=== PATIENT | female | born 1985 | race Caucasian/White ===

== ENCOUNTER 2018-01-30 08:18 | Inpatient (IN) | payer OTHER ==
[~2018-01-30] VITALS: Ht 165.1 cm; Wt 98.9 kg
[~2018-01-30 08:18] MED LIST: AUGMENTIN 875-1 EACH PO; IBUPROFEN800 M1 PO; TYLENOL EXTRA500 M2 PO; ZOFRAN ODT4 M1 SL
[2018-01-30 08:59] LABS: ABSOLUTE BASOPHIL COUNT 0 /CUMM (0.0-0.2); ABSOLUTE EOSINOPHIL COUNT 0 /CUMM (0.0-0.7); ABSOLUTE GRANULOCYTE CT 4.8 /CUMM (1.4-6.5); ABSOLUTE LYMPH COUNT 1.2 /CUMM (1.2-3.4); ABSOLUTE MONOCYTE COUNT 0.4 /CUMM (0.10-0.60); BASOPHIL % 0.3 % (0.0-2.0); EOSINOPHIL % 0.7 % (0-5); GRANULOCYTE % 73.6 % (42.2-75.2); HEMATOCRIT 34.4 % (37-47); MEAN CORPUSCULAR HGB 29.5 PG (27.0-31.0); MEAN CORPUSCULAR VOLUME 86.9 FL (81.0-99.0); MEAN PLATELET VOLUME 8.3 FL (7.4-10.4); PLATELET COUNT 168 /CUMM (130-400); RBC DISTRIBUTION WIDTH 14.1 % (11.5-14.5); RED BLOOD CELL CT 3.96 /CUMM (4.20-5.40); WHITE BLOOD CELL COUNT 6.5 /CUMM (4.8-10.8)
--- NOTE | 2018-01-30 20:15 | History & Physical Pre-Op ---
General Information and HPI History of Present Illness: 32YO EDC 02/05/18 at 39w1d presents for IOL secondary to macrosomia (EFW 8.5-9). care is complete Allergies/Medications Allergies: Coded Allergies: No Known Allergies (05/22/17) Home Med list Acetaminophen (Tylenol Extra Strength) 500 MG TABLET 5 TAB PO DAILY TOOTH ACHE (Reported) Amoxicillin/Potassium Clav (Augmentin 875-125 Tablet) 875 MG-125 MG TABLET 1 TAB PO BID dental Ibuprofen 800 MG TABLET 1 TAB PO TID PRN pain Ondansetron (Zofran Odt) 4 MG TAB.RAPDIS 1 TAB SL TID PRN nausea Past History Medical History Neurological: NONE EENT: NONE Cardiovascular: NONE Respiratory: NONE Gastrointestinal: NONE Hepatic: NONE Renal: NONE Musculoskeletal: NONE Psychiatric: NONE Endocrine: NONE Blood Disorders: NONE 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 EENTM: Reports: no symptoms. Cardiovascular: Reports: no symptoms. Respiratory: Reports: no symptoms. GI: Reports: no symptoms. Genitourinary: Reports: no symptoms. Musculoskeletal: Reports: no symptoms. Skin: Reports: no symptoms. Neurological/Psychological: Reports: no symptoms. Hematologic/Endocrine: Reports: no symptoms. Immunologic/Allergic: Reports: no symptoms. All Other Systems: Reviewed and Negative Exam & Diagnostic Data Last 24 Hrs of Vital Signs/I&O Intake & Output 05/ 1600 05/25 0800 05/25 0000 Intake Total Output Total Balance Patient 218 lb Weight Physical Exam: HEENT: NCAT Chest: CTA CV: nl S1S2 Abd: gravid, cephalic, EFW 8.5-9 Cx: LTCP Ext: no c/c/e Assessment/Plan Assessment/Plan: 39 wk macrosomia induction of labor As Ranked By This Provider Problem List: 1.
--- NOTE | 2018-01-30 20:18 | Labor & Delivery Summary ---
Delivery Summary Vaginal Delivery: Vaginal: spontaneous Episiotomy/Lacerations: Episiotomy/Lacerations: rml Placenta: Placenta: spontanteous, normal, 3 vessel Anesthesia: epi Baby's Weight: 9-15 Apgars - 1 Min: 8 Apgars - 5 Min: 9 Additional Comments: shoulder dystocia relieved with gentle downward pressure, Mcrobert's and suprapubic pressure. Anesthesia at delivery for thin mec.
[2018-01-31 08:39] LABS: ABSOLUTE BASOPHIL COUNT 0 /CUMM (0.0-0.2); ABSOLUTE EOSINOPHIL COUNT 0 /CUMM (0.0-0.7); ABSOLUTE LYMPH COUNT 1.5 /CUMM (1.2-3.4); HEMATOCRIT 35.6 % (37-47); MEAN CORPUSCULAR HGB 29.8 PG (27.0-31.0); RED BLOOD CELL CT 4.03 /CUMM (4.20-5.40)
[2018-01-31 09:18] LABS: ABSOLUTE GRANULOCYTE CT 11.6 /CUMM (1.4-6.5); ABSOLUTE MONOCYTE COUNT 0.9 /CUMM (0.10-0.60); BASOPHIL % 0.2 % (0.0-2.0); EOSINOPHIL % 0.3 % (0-5); GRANULOCYTE % 82.4 % (42.2-75.2); MEAN CORPUSCULAR HGB CONC 33.6 G/DL (33.0-37.0); MEAN CORPUSCULAR VOLUME 88.5 FL (81.0-99.0); MEAN PLATELET VOLUME 8.9 FL (7.4-10.4); PLATELET COUNT 156 /CUMM (130-400); RBC DISTRIBUTION WIDTH 14.2 % (11.5-14.5)
--- NOTE | 2018-01-31 09:36 | PN- Post Delivery/GYN ---
Subjective Subjective: NO C/O Review of Systems: NEG Objective Last 24 Hrs of Vital Signs/I&O VSS Physical Exam: FF EXT NT Assessment/Plan Assessment/Plan PPD1 S/P STABLE CPM Problem List: 1.
[2018-02-01] MEDS ORDERED: IBUPROFEN800 M1 PO (10:57)
== END 2018-02-01 11:16 | DRG 560 ==
LOC: GNO 08:18
PROVIDERS: Obstetrics & Gynecology
PROC: 3E033VJ Introduction of Other Hormone into Peripheral Vein, Percutaneous Approach (ICD-10-PCS; principal; 2018-01-30)
PROC: 10E0XZZ Delivery of Products of Conception, External Approach (ICD-10-PCS; 2018-01-30)
DX: O66.2 Obstructed labor due to unusually large fetus (principal); Z3A.39 39 weeks gestation of pregnancy; Z37.0 Single live birth
CPT/HCPCS: GNOP; GNOS; 36415; 81003; 87086; J3490; J7120

== ENCOUNTER 2018-05-26 06:56 | Emergency (ER) | payer OTHER ==
[~2018-05-26] VITALS: Ht 167.6 cm; Wt 81.6 kg
[2018-05-26 08:50] LABS: ABSOLUTE BASOPHIL COUNT 0 /CUMM (0.0-0.2); ABSOLUTE EOSINOPHIL COUNT 0.1 /CUMM (0.0-0.7); ABSOLUTE GRANULOCYTE CT 4.3 /CUMM (1.4-6.5); ABSOLUTE LYMPH COUNT 1.5 /CUMM (1.2-3.4); ABSOLUTE MONOCYTE COUNT 0.6 /CUMM (0.10-0.60); BASOPHIL % 0.2 % (0.0-2.0); EOSINOPHIL % 1.8 % (0-5); GRANULOCYTE % 65.9 % (42.2-75.2); HEMATOCRIT 42.5 % (37-47); MEAN CORPUSCULAR HGB 30.8 PG (27.0-31.0); MEAN CORPUSCULAR VOLUME 87.9 FL (81.0-99.0); MEAN PLATELET VOLUME 7.4 FL (7.4-10.4); PLATELET COUNT 202 /CUMM (130-400); RBC DISTRIBUTION WIDTH 12.5 % (11.5-14.5); RED BLOOD CELL CT 4.84 /CUMM (4.20-5.40); WHITE BLOOD CELL COUNT 6.5 /CUMM (4.8-10.8)
[2018-05-26 08:57] LABS: PT 11.5 SEC (9.4-12.5); PTT 29 SEC (25-37)
--- NOTE | 2018-05-26 10:12 | CT SCAN REPORT ---
EXAMINATION: CT ABDOMEN AND PELVIS WITH CONTRAST CLINICAL INFORMATION: Bloody diarrhea, left lower quadrant pain for 3 days. Presumptive diagnosis of colitis, diverticulitis, small bowel obstruction, inflammatory bowel disease. COMPARISON: Pelvic ultrasound dated 06/23/2007. TECHNIQUE: Multidetector CT volumetric acquisition of the abdomen and pelvis was performed after the administration of 95 mL of intravenous Optiray 320. The data set was reformatted in the sagittal and coronal planes and reviewed on an independent workstation. DLP: 590.60 mGy-cm. FINDINGS: LOWER CHEST: Included lung bases unremarkable. LIVER, GALLBLADDER, BILIARY TREE: Liver normal size and diffusely slightly lower in attenuation compared to the spleen, suggesting subtle hepatic steatosis. There is a subcapsular 1.2 x 0.9 cm hypoenhancing masslike region seen in segment 4A/B, adjacent to the falciform ligament (series 2, image 19),, most likely representing the area of altered vascular perfusion rather than a true mass. Remainder of the liver is unremarkable with no additional focal cystic or solid mass or intra-or extrahepatic ductal dilatation. Hepatic and portal veins patent. Gallbladder partially distended and within normal limits. PANCREAS: Normal. No ductal dilatation, mass, or surrounding stranding. SPLEEN: Normal size and appearance. Splenic vein patent. ADRENAL GLANDS AND KIDNEYS: Adrenal glands normal. Kidneys bilaterally symmetric in size and function. No focal mass, hydronephrosis, nephrolithiasis or perinephric stranding. URETERS AND BLADDER: Ureters decompressed and within normal limits. Bladder completely decompressed and not adequately assessed. PELVIC ORGANS: Uterus anteverted and anteflexed and unremarkable. Ovaries bilaterally demonstrates several small follicular cysts. No suspicious adnexal mass. GASTROINTESTINAL TRACT: There is diffuse circumferential bowel wall thickening and edema seen involving the ascending colon, transverse colon and to a lesser extent the descending and rectosigmoid colon with mild mucosal hyperenhancement seen. There is mild surrounding hyperemia and minimal fat stranding seen. No evidence of bowel perforation or pneumatosis is noted. The terminal ileum is unremarkable. Small bowel loops decompressed and unremarkable. Appendix in right lower quadrant normal. LYMPHOVASCULAR STRUCTURES: Abdominal aorta normal in caliber. No periaortic collections. No abdominal or pelvic adenopathy or free fluid collection. BONES: Small scattered sclerotic bone islands are seen. No suspicious bone findings. Mild posterior disc osteophyte complex seen at the L5-S1 level. IMPRESSION: 1. Diffuse abnormal appearance of the colon is seen, most prominently involving the ascending and transverse colon with surrounding mesenteric hyperemia and fat stranding. Findings are consistent with a diffuse colitis, possibly secondary to inflammatory bowel disease. In the correct clinical setting, other entities, including antibiotic associated colitis, pseudomembranous colitis, or other infectious colitis can be considered. Close clinical correlation is requested. 2. No evidence of bowel perforation or obstruction. 3. Probable hepatic steatosis with area of altered vascular perfusion in segment 4 adjacent to the falciform ligament. 4. Mild posterior disc osteophyte complex at L5-S1.
[2018-05-26] MEDS ORDERED: DICYCLOMINE HCL10 M1 PO (11:06)
--- NOTE | 2018-05-26 11:07 | ED GI/GU/ABDOMINAL COMPLAINT ---
History of Present Illness General Chief Complaint: Abdominal Pain/Flank Pain Stated Complaint: PT C/O ABD PAIN,DIARRHEA W/ BLEEDING Source: patient Exam Limitations: no limitations Vital Signs & Intake/Output Vital Signs & Intake/Output ED Intake and Output 05/27 0000 05/26 1200 Intake Total 0 Output Total Balance 0 Intake, Oral 0 Patient 180 lb Weight Weight Reported by Patient Measurement Method Allergies Coded Allergies: No Known Allergies (05/22/17) Triage Note: 33 YO FEMALE TO TRIAGE FOR EVAL OF GENERLIZED ABD PAIN WITH +LOOSE STOOL. STATES BRB IN STOOL. +NAUSEA. STATES PAIN STARTED ON FRIDAY. Triage Nurses Notes Reviewed? yes LMP (ages 10-50): unknown ? N Is pt currently ? No Onset: Abrupt Duration: day(s): (2-3), constant, continues in ED, getting worse Timing: single episode today Quality/Severity: cramping Severity Numbers: 8 Location: generalized abdomen, left lower quadrant (WORSE) Radiation: no radiation Activities at Onset: none Prior Abdominal Problems: none Past Sexual History: Unobtainable at this time No Modifying Factors: none Associated Symptoms: abdominal pain, diarrhea HPI: 33-year-old female with no medical history presents for evaluation of abdominal pain nausea and diarrhea. Patient reports symptoms started 2 or 3 days ago to be persistent. She reports that yesterday she noticed that there was bright red blood in the diarrhea. She reports diffuse abdominal cramping that is worse in the left lower area. She never had this before. She denies fevers recent antibiotics recent travel or sick contacts. She is not on blood thinners. No dizziness or lightheadedness no chest pain shortness of breath or back pain. No hematemesis or melena. (Christiano Somers) Reconcile Medications Dicyclomine HCl 10 MG CAPSULE 1-2 CAP PO Q6P PRN ABDOMINAL PAIN DIARRHEA (Jeremiah Vela MD) Past History Travel History Traveled to [place] past 21 day No Medical History Any Pertinent Medical History? 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 No (Christiano Somers) Review of Systems Review of Systems Constitutional: Reports: no symptoms. EENTM: Reports: no symptoms. Respiratory: Reports: no symptoms. Cardiovascular: Reports: no symptoms. GI: Reports: see HPI, abdominal pain, diarrhea, nausea, bloody stool, changes in stool. Genitourinary: Reports: no symptoms. Musculoskeletal: Reports: no symptoms. Skin: Reports: no symptoms. Neurological/Psychological: Reports: no symptoms. Hematologic/Endocrine: Reports: no symptoms. Immunologic/Allergic: Reports: no symptoms. All Other Systems: Reviewed and Negative (Christiano Somers) Physical Exam Physical Exam General Appearance: well developed/nourished, no apparent distress, alert, awake Head: atraumatic, normal appearance Eyes: Bilateral: normal appearance, PERRL, EOMI. Ears, Nose, Throat, Mouth: moist mucous membrane Neck: normal inspection, supple, full range of motion Respiratory: normal breath sounds, chest non-tender, no respiratory distress, lungs clear Cardiovascular: regular rate/rhythm, normal peripheral pulses Peripheral Pulses: 2+ radial (R), 2+ radial (L) Gastrointestinal: normal bowel sounds, soft, no organomegaly, tenderness ( DIFFUSE WORSE LLQ) Back: normal inspection, normal range of motion, no vertebral tenderness Extremities: normal range of motion Neurologic/Psych: no motor/sensory deficits, awake, alert, oriented x 3, normal gait, normal mood/affect Skin: intact, normal color, warm/dry Core Measures ACS in differential dx? No Sepsis Present: No Sepsis Focused Exam Completed? No (Christiano Somers) Progress Differential Diagnosis: bowel obstruction, colon cancer, diverticulitis, gastritis, hemorrhoids, ischemic bowel, inflamm bowel dis, peptic ulcer, PUD/ GERD, BACTERIAL GASTROENTERITIS, cROHN'S DISEASE, ULCERATIVE COLITIS Plan of Care: Orders Procedure Date/time Status CULTURE,STOOL 05/26 1001 Active OVA AND PARASITE ANTIGENS 05/26 1001 Active C.DIFFICILE 05/26 1001 Active Add-on Test (ER Only) 05/26 09 Active HEPATITIS PANEL 05/26 0824 Active MISTAKE 05/26 0800 Active URINE 05/26 0800 Complete URINALYSIS 05/26 0800 Complete PARTIAL THROMBOPLASTIN TIME 05/26 0800 Complete PROTHROMBIN TIME 05/26 0800 Complete LIPASE 05/26 0800 Active COMPREHENSIVE METABOLIC PANEL 05/26 08 Active CBC WITHOUT DIFFERENTIAL 05/26 800 Complete Laboratory Tests 05/26/18 0844: CBC w Diff NO MAN DIFF REQ, RBC 4.84, MCV 87.9, MCH 30.8, MCHC 35.0, RDW 12.5, MPV 7.4, Gran % 65.9, Lymphocytes % 23.3, Monocytes % 8.8, Eosinophils % 1.8, Basophils % 0.2, Absolute Granulocytes 4.3, Absolute Lymphocytes 1.5, Absolute Monocytes 0.6, Absolute Eosinophils 0.1, Absolute Basophils 0 05/26/18 0831: Urine Color YEL, Urine Clarity HAZY H, Urine pH 6.0, Ur Specific [place] >= 1.030, Urine Protein NEG, Urine Ketones NEG, Urine Nitrite NEG, Urine Bilirubin NEG@ICTO, Urine Urobilinogen 0.2, Ur Leukocyte Esterase NEG, Ur Microscopic SEDIMENT EXAMINED, Urine RBC RARE, Urine WBC RARE, Ur Epithelial Cells MANY H, Urine Bacteria MANY H, Urine Mucus MANY H, Urine Hemoglobin TRACE-INTACT, Urine Glucose NEG, Urine Test NEGATIVE 05/26/18 0824: Anion Gap 7, Estimated GFR > 60, BUN/Creatinine Ratio 8.3, Glucose 97, Calcium 9.2, Total Bilirubin 0.8, AST 54 H, ALT 95 H, Alkaline Phosphatase 99, Total Protein 7.3, Albumin 4.0, Globulin 3.3, Albumin/Globulin Ratio 1.2, Lipase 28, PT 11.5, INR 1.05, APTT 29, Hepatitis A IgM Ab Pending, Hep Bs Antigen NONREACTIVE, Hep B Core IgM Ab Conf Pending, Hepatitis C Antibody Pending Microbiology 05/26 1017 STOOL: Cryptosporidium Antigen - RECD 05/26 1017 STOOL: Giardia Antigen (BOAZ) - RECD 05/26 1017 STOOL: Clostridium difficile Toxin A & B - RECD 05/26 1017 STOOL: Stool Culture - RECD Patient is here for evaluation of abdominal pain and bloody diarrhea. Symptoms have been going on for 2 or 3 days. She has no previous history of this. No recent travel sick contacts or recent antibiotics. She has left lower quadrant tenderness on exam. Labs CT scan ordered stool studies were ordered. Patient does have bright red blood in her diarrhea from the stool sample that was obtained. CT scan shows evidence of diffuse colitis. Lab work shows a mild transaminitis. Spoke with Dr. Driver from gastroenterology. He will follow-up with the patient this coming . He recommends holding off on antibiotics at this time as patient is afebrile does not have a white count. He feels symptoms are resolved on their own. He recommends having the patient take Pepto-Bismol and Bentyl. Reviewed all results of today's visit with patient. Advised her to call Dr. Driver's office for appointment this . Discussed return precautions in detail patient agrees the plan Diagnostic Imaging: Viewed by Me: CT Scan. Discussed w/RAD: CT Scan. Radiology Impression: PATIENT: AZRA SEVILLA PRESENT AGE: 33 PATIENT ACCOUNT NO: [id number] : 85 LOCATION: [facility] ORDERING PHYSICIAN: Christiano SULLIVAN SERVICE DATE: 05/26/18 EXAM TYPE: CAT - CT ABD & PELVIS W IV CONTRAST EXAMINATION: CT ABDOMEN AND PELVIS WITH CONTRAST CLINICAL INFORMATION: Bloody diarrhea, left lower quadrant pain for 3 days. Presumptive diagnosis of colitis, diverticulitis, small bowel obstruction, inflammatory bowel disease. COMPARISON: Pelvic ultrasound dated 06/23/2007. TECHNIQUE: Multidetector CT volumetric acquisition of the abdomen and pelvis was performed after the administration of 95 mL of intravenous Optiray 320. The data set was reformatted in the sagittal and coronal planes and reviewed on an independent workstation. DLP: 590.60 mGy-cm. FINDINGS: LOWER CHEST: Included lung bases unremarkable. LIVER, GALLBLADDER, BILIARY TREE: Liver normal size and diffusely slightly lower in attenuation compared to the spleen, suggesting subtle hepatic steatosis. There is a subcapsular 1.2 x 0.9 cm hypoenhancing masslike region seen in segment 4A/B, adjacent to the falciform ligament (series 2, image 19),, most likely representing the area of altered vascular perfusion rather than a true mass. Remainder of the liver is unremarkable with no additional focal cystic or solid mass or intra-or extrahepatic ductal dilatation. Hepatic and portal veins patent. Gallbladder partially distended and within normal limits. PANCREAS: Normal. No ductal dilatation, mass, or surrounding stranding. SPLEEN: Normal size and appearance. Splenic vein patent. ADRENAL GLANDS AND KIDNEYS: Adrenal glands normal. Kidneys bilaterally symmetric in size and function. No focal mass, hydronephrosis, nephrolithiasis or perinephric stranding. URETERS AND BLADDER: Ureters decompressed and within normal limits. Bladder completely decompressed and not adequately assessed. PELVIC ORGANS: Uterus anteverted and anteflexed and unremarkable. Ovaries bilaterally demonstrates several small follicular cysts. No suspicious adnexal mass. GASTROINTESTINAL TRACT: There is diffuse circumferential bowel wall thickening and edema seen involving the ascending colon, transverse colon and to a lesser extent the descending and rectosigmoid colon with mild mucosal hyperenhancement seen. There is mild surrounding hyperemia and minimal fat stranding seen. No evidence of bowel perforation or pneumatosis is noted. The terminal ileum is unremarkable. Small bowel loops decompressed and unremarkable. Appendix in right lower quadrant normal. LYMPHOVASCULAR STRUCTURES: Abdominal aorta normal in caliber. No periaortic collections. No abdominal or pelvic adenopathy or free fluid collection. BONES: Small scattered sclerotic bone islands are seen. No suspicious bone findings. Mild posterior disc osteophyte complex seen at the L5- S1 level. IMPRESSION: 1. Diffuse abnormal appearance of the colon is seen, most prominently involving the ascending and transverse colon with surrounding mesenteric hyperemia and fat stranding. Findings are consistent with a diffuse colitis, possibly secondary to inflammatory bowel disease. In the correct clinical setting, other entities, including antibiotic associated colitis, pseudomembranous colitis, or other infectious colitis can be considered. Close clinical correlation is requested. 2. No evidence of bowel perforation or obstruction. 3. Probable hepatic steatosis with area of altered vascular perfusion in segment 4 adjacent to the falciform ligament. 4. Mild posterior disc osteophyte complex at L5-S1. DICTATED BY: Vale Callahan MD DATE/TIME DICTATED:05/26/18950 INNOVATION ANALYST:AVANI DATE/TIME TRANSCRIBED:950 CONFIDENTIAL, DO NOT COPY WITHOUT APPROPRIATE AUTHORIZATION. Initial ED EKG: none (Chadwick SULLIVAN,Christiano) Departure Departure Disposition: HOME OR SELF CARE Condition: Stable Clinical Impression Primary Impression: Colitis Referrals: Patient Has No Primary Care Dr (PCP/Family) Arnoldo Driver MD. Additional Instructions: Rest and drink plenty of fluids. Bentyl and Pepto-Bismol as directed. Make a follow-up with Dr. Driver jig mill operator this . If YOU did not receive a call from his office call him. Monitor symptoms closely. If you feel dizzy lightheaded feels that he may pass out chest pain shortness of breath worsening abdominal pain or fever return immediately. Please note that there might be incidental findings in your evaluation that are unrelated to the current emergency department visit. Please notify your primary care doctor about this emergency department visit in order to obtain and review all of the testing performed so that these incidental findings can be monitored as needed. If you had an x-ray performed, please understand that some fractures or other findings may not be seen on the initial set of x-rays. If your symptoms persist you might need a repeat set of x-rays to check for such a fracture. If you had a laceration evaluated, please understand that foreign bodies such as glass or wood may not be visible to the naked eye or on plain x-rays. If the wound becomes red, swollen, increasingly more painful or if there is any drainage from the wound, please have it reevaluated by a physician for the possibility of a retained foreign body. If you're unable to follow up as outlined in the discharge instructions please return to the emergency department. Thank you for choosing the Emergency Department for your care. It was a pleasure to serve you today. Departure Forms: Customer Survey General Discharge Information Prescriptions: Current Visit Scripts Dicyclomine HCl 1-2 CAP PO Q6P PRN ABDOMINAL PAIN DIARRHEA #30 CAP (Christiano Somers) Departure Comments 05/27/18 1900: I personally called Ms Sevilla regarding positive Shiga toxin. No answer. PA/PHYSICIAN ALLERGIST IMMUNOLOGIST Co-Sign Statement Statement: ED Attending supervision documentation- I saw and evaluated the patient. I have also reviewed all the pertinent lab results and diagnostic results. I agree with the findings and the plan of care as documented in the PA's/PHYSICIAN ALLERGIST IMMUNOLOGIST's documentation. x I have reviewed the ED Record and agree with the PA's/PHYSICIAN ALLERGIST IMMUNOLOGIST's documentation. [] Additions or exceptions (if any) to the PAs/PHYSICIAN ALLERGIST IMMUNOLOGIST's note and plan are summarized below: [] (Dane SOUZA,Jeremiah)
[2018-05-26 11:14] VITALS: BP 115/70
== END 2018-05-26 11:14 ==
LOC: ERH 06:56
PROVIDERS: Physician Assistant Medical
DX: K52.9 Noninfective gastroenteritis and colitis, unspecified (principal)
CPT/HCPCS: 74177; 81001; 81025; 87015; 87045; 87328; 87329; 87899; 87899-59; 96374; J0131